=== PATIENT | male | born 1985 | race Two or more races ===

== ENCOUNTER 2024-08-07 08:12 | Outpatient (RCR) | payer MEDICAID, SELFPAY ==
--- NOTE | 2024-08-07 10:00 | XR_ITS ---
Examination: CHRISTOPHER, hepatobiliary radioisotope scan Date and time of exam: August 07, 2024 0920 hours INDICATIONS: Bloating after eating months Technique: 6.0 mCi of 99M Hepatolite administered. Serial imaging then obtained from immediate through 60 minutes. . Findings: Radioisotope activity within the liver is reasonably homogenous. Common bile duct small bowel activity noted Impression: Negative for gallbladder activity, consistent with cystic duct obstruction
== END 2024-08-12 23:59 | disposition home or self-care (01) ==
LOC: SNUC 08:12
PROVIDERS: PCP Physician Assistant; Referring Provider Physician Assistant; Visit Provider Physician Assistant
DX: K82.9 Disease of gallbladder, unspecified (principal)
CPT/HCPCS: 78227; A9537